=== PATIENT | female | born 1945 | race Caucasian/White ===

== ENCOUNTER 2018-10-23 16:16 | Emergency (ER) | payer MEDICARE ==
[2018-10-23] MEDS ORDERED: Sodium Chloride 0.9% 1000 ML 1,000 ML IV SCH (16:45)
[2018-10-23] MEDS ORDERED: Sodium Chloride 0.9% 1000 ML 1,000 ML ONE (17:04)
[2018-10-23 17:06] LABS: BASOPHIL % 0.5 % (0.0-0.4); Basophil (Absolute #) 0.03 (0-0.4); Eosinophil % 1.4 % (0.00-5.0); Eosinophil (Absolute #) 0.09 (0-0.5); Granulocytes % 68.5 % (36.0-66.0); Lymphocyte (Absolute #) 1.35 (1.0-4.6); Lymphocytes % 20.5 % (24.0-44.0); Mean Corpuscular Hemoglobin 31.3 pg (26-32); Mean Corpuscular Hgb Concent. 33.3 g/dl (32-36); Mean Platelet Volume 9.7 fl (6-9.5); Monocytes % 9.1 % (0.0-12.0); Platelet Count 227 K/mm3 (150-450); Red Blood Count 3.51 M/mm3 (4.1-5.4); Red Cell Distribution Width 13.9 % (11.5-14.0); White Blood Count 6.6 K/mm3 (4.0-10.5)
--- NOTE | 2018-10-23 17:10 | ERPHSYRPT ---
- History of Present Illness Time Seen by Provider: 10/23/18 16:43 Historian: patient Exam Limitations: clinical condition Patient Subjective Stated Complaint: had colonoscopy done yesterday by Dr Keene.. c/o not being able to pass air after procedure.. has had 3 episodes of air. passed a small amount of air. states tender to the upper and lower abdomen. did have a polyp removal. Triage Nursing Assessment: alert and oriented with c/o pain upper and lower abdomen. states has not been able to pass the air. has had a small amount of stool since procedure. abdomen tender to palp to upper and lower abdomen.. soft to palpate. hypo bowel sounds. Physician History: PATIENT WITH A HISTORY OF RHEUMATOID ARTHRITIS, HYPERTENSION, COMPLAINS OF HAVING COLONOSCOPY AND POLYPECTOMY YESTERDAY AND PASSING VERY FEW AMOUNTS OF GAS. PATIENT ALSO COMLAINS OF GENERALIZED ABDOMINAL PAIN, FEVER, OR URINARY SYMPTOMS Timing/Duration: yesterday Activities at Onset: other (AFTER COLONOSCOPY) Abdominal Pain Onset Location: LLQ, periumbilical Pain Radiation: no radiation Severity of Pain-Max: moderate Severity of Pain-Current: moderate Modifying Factors: Improves With: other (UNABLE TO HAVE FLATUS) Associated Symptoms: other (ABDOMINAL PAIN) Previous symptoms: no prior history Allergies/Adverse Reactions: hydrocodone Allergy (Verified 10/23/18 16:42) Sulfa (Sulfonamide Antibiotics) Allergy (Verified 10/23/18 16:42) Home Medications: Atenolol 50 mg [Tenormin 50 mg] 1 tab PO BID 07/18/15 [History] Biotin 5,000 mcg PO DAILY 07/18/15 [History] Calcium Citrate/Vitamin D3 [Citracal + D Caplet] 1 tab PO DAILY 07/18/15 [ History] Folic Acid 1 mg PO DAILY 07/18/15 [History] Glucosamine Sulfate Dipot Chlr [Glucosamine] 4,000 mg PO DAILY 07/18/15 [History ] Krill/Om-3/Dha/Epa/Phospho/Ast [Megared [place]-3 Krill Oil Sfgl] 1 tab PO DAILY 07/18/15 [History] Leucovorin Calcium 20 mg PO UD 07/18/15 [History] Levothyroxine Sodium 1 tab PO DAILY 07/18/15 [History] Multivitamin W-Minerals/Lutein [Centrum Silver Tablet] 1 tab PO DAILY 07/18/15 [ History] metHOTREXate sodium [Methotrexate] 6 tab PO WEEKLY 07/18/15 [History] - Review of Systems Constitutional: No Fever, No Chills Eyes: No Symptoms Ears, Nose, & Throat: No Symptoms Respiratory: No Symptoms, No Cough, No Dyspnea Cardiac: No Symptoms, No Chest Pain, No Edema, No Syncope Abdominal/Gastrointestinal: Abdominal Pain, No Nausea, No Vomiting, No Diarrhea Genitourinary Symptoms: No Symptoms, No Dysuria Musculoskeletal: No Symptoms, No Back Pain, No Neck Pain Skin: No Rash Neurological: No Dizziness, No Focal Weakness, No Sensory Changes Psychological: No Symptoms Endocrine: No Symptoms All Other Systems: Reviewed and Negative - Past Medical History Pertinent Past Medical History: Yes Neurological History: No Pertinent History ENT History: Cataracts Cardiac History: High Cholesterol, Hypertension Respiratory History: No Pertinent History Endocrine Medical History: Hypothyroidism Musculoskeletal History: Arthritis, Osteoporosis, Rheumatoid Arthritis GI Medical History: Diverticulitis, Diverticulosis, Hernia History: No Pertinent History Psycho-Social History: No Pertinent History Female Reproductive Disorders: Breast Cancer - Past Surgical History Past Surgical History: Yes Neuro Surgical History: No Pertinent History Cardiac: No Pertinent History Respiratory: Chest Surgery Gastrointestinal: Cholecystectomy Genitourinary: No Pertinent History Musculoskeletal: No Pertinent History Female Surgical History: Lumpectomy Other Surgical History: small bowel resection. - Social History Smoking Status: Never smoker Exposure to second hand smoke: No Drug Use: none Patient Lives Alone: No - Female History Hx Now: No - Nursing Vital Signs Nursing Vital Signs: Initial Vital Signs Temperature 98.0 F 10/23/18 16:30 Pulse Rate 77 10/23/18 16:30 Respiratory Rate 18 10/23/18 16:30 Blood Pressure 155/81 10/23/18 16:30 O2 Sat by Pulse Oximetry 98 10/23/18 16:30 Pain Scale Pain Intensity 0 - Physical Exam General Appearance: no apparent distress, alert Eye Exam: PERRL/EOMI, eyes nml inspection Ears, Nose, Throat Exam: normal ENT inspection, pharynx normal, moist mucous membranes Neck Exam: normal inspection, non-tender, supple, full range of motion Respiratory Exam: normal breath sounds, lungs clear, No respiratory distress Cardiovascular Exam: regular rate/rhythm, normal heart sounds Gastrointestinal/Abdomen Exam: soft, other (HYPERACTIVE BOWEL SOUNDS HIGH PITCHED, MODERATE DISTENTION, PERIUMBILICAL TENDERNESS), No tenderness, No mass Back Exam: normal inspection, normal range of motion, No CVA tenderness, No vertebral tenderness Extremity Exam: normal inspection, normal range of motion, pelvis stable Neurologic Exam: alert, oriented x 3, cooperative, normal mood/affect, nml cerebellar function, sensation nml, No motor deficits Skin Exam: normal color, warm, dry SpO2 Interpretation: normal SpO2: 98 Oxygen Delivery: Room Air - CT Exams Abdomen/Pelvis CT Interpretation: Tele-radiologist Report (MILD ACUTE DIVERTICULITIS INVOLVING THE DISTAL SIGMOID COLON. MILD INFLAMMATORY TYPE STRANDNG ADJACENT TO THE CECUM AND APPENDIX, APPENDIX IS SLIGHTLY DILATED, MEASURING 7 MM. CORRELATE CLINICALLY FOR EARLY ACUTE APPENDITIS) Ordered Tests: Active Orders 24 hr Category Date Time Status Clean Catch Urine Specimen STAT Care 10/23/18 16:43 Active IV Insertion STAT Care 10/23/18 16:43 Active ABDOMEN AND PELVIS W CONTRAST [CT] Stat Exams 10/23/18 16:43 Taken AMYLASE Stat Lab 10/23/18 17:00 Completed BLOOD CULTURE Stat Lab 10/23/18 19:15 Received BMP Stat Lab 10/23/18 17:00 Completed CBC W DIFF Stat Lab 10/23/18 17:00 Completed LIPASE Stat Lab 10/23/18 17:00 Completed UA W/RFX UR CULTURE Stat Lab 10/23/18 17:18 Completed Medication Summary Generic Name Dose Route Start Last Admin Trade Name Freq PRN Reason Stop Dose Admin Sodium Chloride 1,000 mls @ 50 mls/hr 10/23/18 16:45 10/23/18 20:55 Sodium Chloride 0.9% 1000 Ml IV 11/22/18 16:44 50 mls/hr .Q20H ADIS Infusion Discontinued Medications Generic Name Dose Route Start Last Admin Trade Name Freq PRN Reason Stop Dose Admin Levofloxacin/Dextrose 500 mg in 100 mls @ 100 mls/hr 10/23/18 19:01 10/23/18 20:55 Levofloxacin 500mg/100ml D5w IV 10/23/18 20:00 Infused STAT STA Infusion Levofloxacin/Dextrose Confirm 10/23/18 19:19 Levofloxacin 500mg/100ml D5w Administered 10/23/18 19:20 Dose 500 mg in 100 mls @ ud IV .[facility] Lab/Rad Data: Laboratory Result Diagrams 10/23/18 17:00 10/23/18 17:00 Laboratory Results 10/23/18 10/23/18 10/23/18 Range/Units 17:18 17:00 17:00 WBC 6.6 (4.0-10.5) K/mm3 RBC 3.51 L (4.1-5.4) M/mm3 Hgb 11.0 L (12.0-16.0) gm/dl Hct 33.0 L (35-47) % MCV 94.0 (78-100) fl MCH 31.3 (26-32) pg MCHC 33.3 (32-36) g/dl RDW 13.9 (11.5-14.0) % Plt Count 227 (150-450) K/mm3 MPV 9.7 H (6-9.5) fl Gran % 68.5 H (36.0-66.0) % Eos # (Auto) 0.09 (0-0.5) Absolute Lymphs (auto) 1.35 (1.0-4.6) Absolute Monos (auto) 0.60 (0.0-1.3) Lymphocytes % 20.5 L (24.0-44.0) % Monocytes % 9.1 (0.0-12.0) % Eosinophils % 1.4 (0.00-5.0) % Basophils % 0.5 (0.0-0.4) % Absolute Granulocytes 4.50 (1.4-6.9) Basophils # 0.03 (0-0.4) Sodium 131 L (137-145) mmol/L Potassium 3.8 (3.5-5.1) mmol/L Chloride 97 L (98-107) mmol/L Carbon Dioxide 27 (22-30) mmol/L Anion Gap 10.9 (5-15) MEQ/L BUN 12 (7-17) mg/dL Creatinine 0.85 (0.52-1.04) mg/dL Estimated GFR > 60.0 ML/MIN Glucose 110 H (74-106) mg/dL Calcium 8.7 (8.4-10.2) mg/dL Amylase 70 (30-110) U/L Lipase 127 (23-300) U/L Urine Color STRAW (YELLOW) Urine Appearance CLEAR (CLEAR) Urine pH 6.0 (5-6) Ur Specific Dickens 1.005 (1.005-1.025) Urine Protein NEGATIVE (Negative) Urine Ketones NEGATIVE (NEGATIVE) Urine Blood NEGATIVE (0-5) Jet/ul Urine Nitrite NEGATIVE (NEGATIVE) Urine Bilirubin NEGATIVE (NEGATIVE) Urine Urobilinogen NEGATIVE (0-1) mg/dL Ur Leukocyte Esterase NEGATIVE (NEGATIVE) Urine WBC (Auto) 0-2 (0-5) /HPF Urine RBC (Auto) 0-2 (0-2) /HPF U Epithel Cells (Auto) NONE (FEW) /HPF Urine Bacteria (Auto) NONE (NEGATIVE) /HPF Urine Mucus (Auto) SLIGHT (NEGATIVE) /HPF Urine Culture Reflexed NO (NO) Urine Glucose NEGATIVE (NEGATIVE) mg/dL - Progress Progress Note: 10/23/18 16:51 IV NORMAL SALINE 50ML/HR, LEVAQUIN 500MG IVPB AFTER 2 SETS OF BLOOD CULTURES OBTAINED. 10/23/18 20:06, DISCUSSED CT SCAN ABDOMEN PELVIS RESULTS WITH DR ELIJAH SALVADOR AT 1940 WITH RECOMMENDATION TO TRANSFER TO [facility] SITE OF PREVIOUS COLONOSCOPY YESTERDAY 10/23/18 20:07 Discussed with DrIsabella: Other (DISCUSSED WITH DR WHITE AT [address] [facility] VIA BLS) - Departure Time of Disposition: 20:37 Departure Disposition: Transfer Clinical Impression: EARLY ACUTE APPENDICITIS, DISTAL SIGMOID DIVERTICULITIS Condition: Stable Critical Care Time: No Referrals: GIOVANNI BERMUDEZ [Primary Care Provider] -
[2018-10-23 17:19] LABS: AMYLASE 70 U/L (30-110); ANION GAP 10.9 MEQ/L (5-15); BLOOD UREA NITROGEN 12 mg/dL (7-17); CHLORIDE 97 mmol/L (98-107); Calcium 8.7 mg/dL (8.4-10.2); Carbon Dioxide 27 mmol/L (22-30); Creatinine 1 0.85 mg/dL (0.52-1.04); Glucose 110 mg/dL (74-106); LIPASE 127 U/L (23-300); Potassium 3.8 mmol/L (3.5-5.1); SODIUM 131 mmol/L (137-145)
[2018-10-23 17:29] LABS: Appearance CLEAR (CLEAR); Bilirubin NEGATIVE (NEGATIVE); Blood NEGATIVE Ery/ul (0-5); Glucose NEGATIVE (NEGATIVE); Ketones NEGATIVE (NEGATIVE); Leukocyte Esterase NEGATIVE (NEGATIVE); Nitrite NEGATIVE (NEGATIVE); Protein,Urine Dip NEGATIVE (Negative); Specific Gravity 1.005 (1.005-1.025); Urobilinogen NEGATIVE mg/dL (0-1)
[2018-10-23] MEDS ORDERED: Levofloxacin 500MG/100ML D5W 500 MG/100 ML BAG IV STA (19:01)
[2018-10-23] MEDS ORDERED: Levofloxacin 500MG/100ML D5W 500 MG/100 ML BAG IV ONE (19:19)
[2018-10-23 20:45] VITALS: BP 137/82; PULSE 75
[2018-10-23 21:02] VITALS: O2SAT 98
--- NOTE | 2018-10-23 22:28 | XRAY ---
Indication: Abdominal discomfort and bloating following colonoscopy one day earlier. Multiple contiguous axial images obtained through the abdomen and pelvis using 80 cc Isovue 370 contrast only. Comparison: October 06, 2014. Lung bases demonstrate stable minimal right middle lobe fibrosis/scarring and tiny right base calcified granuloma. No infiltrate or effusion. Heart is not enlarged. Noncontrasted stomach and bowel loops appear nonobstructed. Stable descending duodenum diverticulum. Colon is not abnormally air distended. Cecum now demonstrates mild stranding favoring colitis. Normal appendix. Stable colonic diverticulosis with now minimal sigmoid diverticulitis. No free fluid/air. Stable cholecystectomy and/pelvic wall hernia repair with intact mesh graft. Stable hepatic calcified granuloma. Remaining liver, pancreas, spleen, adrenal glands, kidneys, ureters, bladder, and uterus appear unremarkable. There remains moderate aortoiliac calcifications. No AAA or pathological retroperitoneal lymphadenopathy. Osseous structures again demonstrates osteopenia and mild/moderate multilevel degenerative spondylosis including minimal grade 1 L4 spondylolisthesis. Again remote L1 compression fracture with new remote-appearing T9/T11 compression fractures with interval kyphoplasty of these same levels. Impression: 1. Mild pericecal stranding. Rule out colitis. 2. Again colonic diverticulosis with minimal sigmoid diverticulitis. No complications. 3. Again incidental duodenal diverticulum, osteopenia, multilevel degenerative spondylosis, grade 1 L4 spondylolisthesis, and remote T9/T11 L1 compression fracture with kyphoplasty. Comment: Preliminary interpretation was made by [facility]. No critical discrepancy. CTDI 18.35
== END 2018-10-23 20:37 | disposition short-term general hospital (02) ==
LOC: ED 16:16
DX: K35.80 Unspecified acute appendicitis (principal); K57.32 Diverticulitis of large intestine without perforation or abscess without bleeding; R10.32 Left lower quadrant pain; R10.33 Periumbilical pain; Z79.899 Other long term (current) drug therapy
CPT/HCPCS: 36000; 36415; 74177; 80048; 81001; 82150; 83690; 85025; 87040; 96360; 96361; 96365; 99285; J1956